=== PATIENT | male | born 1960 | race Caucasian/White ===

== ENCOUNTER 2019-05-06 00:13 | Emergency (ER) | payer MEDICAID, MEDICARE ==
[~2019-05-06] VITALS: Ht 172.7 cm; Wt 64.4 kg
[2019-05-06 01:40] LABS: Basophils # (auto) 0 uL; Basophils % (auto) 0.6 % (0.0-2.0); Eosinophils # (auto) 0.1 uL; Eosinophils % (auto) 0.9 % (0.0-7.0); Hematocrit 44.4 % (41.0-53.0); Hemoglobin 15.5 g/dL (13.5-17.5); Lymphocytes # (auto) 1.3 uL; Mean Corpuscular Hemoglobin 30.7 pg (28.0-32.0); Mean Corpuscular Volume 87.8 fL (80.0-100.0); Monocytes # (auto) 0.7 uL; Monocytes % (auto) 10.5 % (0.0-12.0); Neutrophils # (auto) 4.6 uL; Nucleated Red Blood Cells % 0.1 %; Platelet Count (auto) 109 10^3/uL (140-450); Red Blood Cells 5.06 10^6/uL (4.5-5.90); Red Cell Distribution Width 13.5 % (11.8-14.3); White Blood Cell 6.7 10^3/uL (4.4-10.8)
[2019-05-06 01:58] LABS: Albumin 3.1 g/dL (3.4-5.0); BUN/Creatinine Ratio 26.3; Calcium 9.4 mg/dL (8.5-10.1); Magnesium 1.8 mg/dL (1.6-2.6); Potassium 3.9 mmol/L (3.5-5.1)
[2019-05-06 02:00] LABS: Bilirubin, Total 0.6 mg/dL (0.2-1.0); Total Protein 8.6 g/dL (6.4-8.2)
[2019-05-06 02:55] LABS: Urine Bacteria FEW /hpf (None Seen); Urine Blood TRACE /uL (Negative); Urine Specific Gravity 1.038 (1.001-1.035); Urine WBC 1 /hpf (0 - 3)
[2019-05-06] MEDS ORDERED: SODIUM CHLORIDE 0.9% 1,000 ML IV ONE (07:51)
[2019-05-06] MEDS ORDERED: cloNIDine HCL 0.1 MG TAB PO ONE (08:00)
[2019-05-06] MEDS ORDERED: InsuLIN REG 1unit/0.01ml Soln (100units/ml) IV ONE (08:00)
[2019-05-06 11:00] VITALS: BP 146/91
== END 2019-05-06 12:30 | disposition home or self-care (01) ==
LOC: ER 00:15
DX: E11.65 Type 2 diabetes mellitus with hyperglycemia (principal); I10 Essential (primary) hypertension; R51 Headache
CPT/HCPCS: 36415; 71046; 80053; 81001; 82962; 83735; 85025; 96361; 96374; 99284; J1815; J7030

== ENCOUNTER 2019-11-17 19:05 | Emergency (ER) | payer MEDICARE, MEDICAID ==
[~2019-11-17] VITALS: Ht 172.7 cm; Wt 64.4 kg
[2019-11-17 19:41] VITALS: BP 141/99
[2019-11-17 21:46] LABS: Basophils # (auto) 0.1 10 ^3/uL (0-0.2); Basophils % (auto) 0.8 % (0.0-2.0); Eosinophils # (auto) 0.1 10 ^3/uL (0-0.8); Hematocrit 47.4 % (41.0-53.0); Hemoglobin 16.1 g/dL (13.5-17.5); Lymphocytes # (auto) 2.8 10 ^3/uL (0.4-5.4); Lymphocytes % (auto) 31.5 % (10.0-50.0); Mean Corpuscular Hemoglobin 30.1 pg (28.0-32.0); Mean Corpuscular Hgb Conc. 33.9 g/dL (32.0-36.0); Mean Corpuscular Volume 88.8 fL (80.0-100.0); Monocytes # (auto) 0.8 10 ^3/uL (0-1.3); Monocytes % (auto) 9.4 % (0.0-12.0); Neutrophils # (auto) 5.2 10 ^3/uL (1.6-8.6); Neutrophils % (auto) 57.3 % (37.0-80.0); Nucleated Red Blood Cells % 0.2 %; Platelet Count (auto) 133 10^3/uL (140-450); Red Blood Cells 5.33 10^6/uL (4.5-5.90); Red Cell Distribution Width 13.5 % (11.8-14.3)
[2019-11-17 22:00] LABS: Albumin 3.8 g/dL (3.4-5.0); Calcium 10.3 mg/dL (8.5-10.1); Potassium 4.1 mmol/L (3.5-5.1)
[2019-11-17 22:03] LABS: BUN/Creatinine Ratio 26.3
[2019-11-17 22:06] LABS: Bilirubin, Total 0.7 mg/dL (0.2-1.0); Total Protein 8.6 g/dL (6.4-8.2)
[2019-11-17 22:29] LABS: Urine Bacteria NONE SEEN /hpf (None Seen); Urine Blood 1+ /uL (Negative); Urine Mucus FEW (None Seen); Urine Specific Gravity 1.039 (1.001-1.035); Urine WBC 2 /hpf (0 - 3)
[2019-11-17] MEDS ORDERED: MAGNESIUM CITRATE SOLUTION 300 ML BTL PO ONE (22:45)
== END 2019-11-18 00:20 | disposition home or self-care (01) ==
LOC: ER 19:05
DX: N20.0 Calculus of kidney (principal); K80.20 Calculus of gallbladder without cholecystitis without obstruction; K59.00 Constipation, unspecified; E11.9 Type 2 diabetes mellitus without complications; I10 Essential (primary) hypertension; Z87.442 Personal history of urinary calculi
CPT/HCPCS: 36415; 74176; 80053; 81001; 83690; 85025

== ENCOUNTER 2020-06-20 13:50 | Emergency (ER) | payer MEDICARE, MEDICAID ==
[~2020-06-20] VITALS: Ht 182.9 cm; Wt 65.8 kg
[2020-06-20] MEDS ORDERED: cloNIDine HCL 0.1 MG TAB PO ONE (14:15)
[2020-06-20] MEDS ORDERED: CARISOPRODOL 350 MG TAB PO ONE (17:00)
[2020-06-20] MEDS ORDERED: KETOROLAC TROMETH 60MG/2ML VIAL IM ONE (17:00)
[2020-06-20 18:24] VITALS: BP 160/99
== END 2020-06-20 17:43 | disposition home or self-care (01) ==
LOC: ER 13:50 → EDBD 13:50 → ER 17:43
DX: M54.5 Low back pain (principal); I10 Essential (primary) hypertension
CPT/HCPCS: 72131; 96372; 99284; J1885

== ENCOUNTER 2021-03-28 19:41 | Emergency (ER) | payer MEDICARE, MEDICAID ==
[~2021-03-28] VITALS: Ht 182.9 cm; Wt 77.1 kg
[2021-03-28 19:48] VITALS: BP 219/120
[2021-03-28 21:28] LABS: Basophils # (auto) 0.1 10 ^3/uL (0-0.2); Eosinophils # (auto) 0.1 10 ^3/uL (0-0.8); Eosinophils % (auto) 1.6 % (0.0-7.0); Hemoglobin 13.6 g/dL (13.5-17.5); Lymphocytes # (auto) 1.8 10 ^3/uL (0.4-5.4); Lymphocytes % (auto) 29.6 % (10.0-50.0); Mean Corpuscular Hemoglobin 30.1 pg (28.0-32.0); Mean Corpuscular Volume 88.7 fL (80.0-100.0); Monocytes # (auto) 0.6 10 ^3/uL (0-1.3); Monocytes % (auto) 9.2 % (0.0-12.0); Neutrophils # (auto) 3.6 10 ^3/uL (1.6-8.6); Neutrophils % (auto) 58.6 % (37.0-80.0); Red Blood Cells 4.51 10^6/uL (4.5-5.90); Red Cell Distribution Width 13.3 % (11.8-14.3); White Blood Cell 6.2 10^3/uL (4.4-10.8)
[2021-03-28 21:50] LABS: Albumin 3.7 g/dL (3.4-5.0); Calcium 8.9 mg/dL (8.5-10.1); Potassium 3.5 mmol/L (3.5-5.1)
[2021-03-28 22:09] LABS: BUN/Creatinine Ratio 23.1; Bilirubin, Total 0.4 mg/dL (0.2-1.0); Total Protein 7.3 g/dL (6.4-8.2)
[2021-03-28] MEDS ORDERED: PERCOT PO (23:43)
[2021-03-28] MEDS ORDERED: AZIT1POW12 PO (23:43)
[2021-03-28] MEDS ORDERED: PRED20TA2 PO (23:43)
== END 2021-03-29 05:58 | disposition home or self-care (01) ==
LOC: EDBD 19:41 → ER 19:44
DX: J44.1 Chronic obstructive pulmonary disease with (acute) exacerbation (principal); J18.9 Pneumonia, unspecified organism; E11.9 Type 2 diabetes mellitus without complications; I10 Essential (primary) hypertension
CPT/HCPCS: 36415; 70450; 71045; 72131; 80053; 84484; 85025; 93005

== ENCOUNTER → 2021-05-01 | Emergency (ER) | payer OTHER, MEDICAID ==
[~2021-05-01] VITALS: Ht 180.3 cm; Wt 59.0 kg
[~2021-05-01] MED LIST: AZIT1POW12 PO; PERCOT PO; PRED20TA2 PO
[2021-05-01 22:00] VITALS: BP 167/85
== END | disposition home or self-care (01) ==
LOC: EDBD 13:46 → ER 13:46 → EDUNIT# 13:46
DX: M54.50 Low back pain, unspecified (principal); J44.9 Chronic obstructive pulmonary disease, unspecified; E11.9 Type 2 diabetes mellitus without complications; I10 Essential (primary) hypertension; Z86.73 Personal history of transient ischemic attack (TIA), and cerebral infarction without residual deficits; Z79.2 Long term (current) use of antibiotics; Z79.899 Other long term (current) drug therapy
CPT/HCPCS: 72131

== ENCOUNTER 2024-01-12 08:37 | Inpatient (IN) | payer OTHER ==
[~2024-01-12] VITALS: Ht 175.3 cm; Wt 64.4 kg
[~2024-01-12 08:37] MED LIST changes: +TRAZ-227 PO
[2024-01-12 09:48] LABS: Chloride 104 mmol/L (98-107); Potassium 3.1 mmol/L (3.5-5.1); Sodium 142 mmol/L (136-145)
[2024-01-12 09:49] LABS: Anion Gap 8 (5-15); Calcium 8.9 mg/dL (8.7-10.4); Carbon Dioxide 30 mmol/L (20-31)
[2024-01-12 09:52] LABS: Basophils # (auto) 0 10 ^3/uL (0-0.2); Basophils % (auto) 0.9 % (0.0-2.0); Eosinophils # (auto) 0.1 10 ^3/uL (0-0.8); Eosinophils % (auto) 1.6 % (0.0-7.0); Hematocrit 34.7 % (41.0-53.0); Hemoglobin 12.4 g/dL (13.5-17.5); Lymphocytes # (auto) 1.1 10 ^3/uL (0.4-5.4); Lymphocytes % (auto) 24.2 % (10.0-50.0); Mean Corpuscular Hemoglobin 30.6 pg (28.0-32.0); Mean Corpuscular Hgb Conc. 35.7 g/dL (32.0-36.0); Mean Corpuscular Volume 85.8 fL (80.0-100.0); Monocytes # (auto) 0.4 10 ^3/uL (0-1.3); Monocytes % (auto) 9.4 % (0.0-12.0); Neutrophils # (auto) 2.8 10 ^3/uL (1.6-8.6); Neutrophils % (auto) 63.9 % (37.0-80.0); Platelet Count (auto) 81 10^3/uL (140-450); Red Blood Cells 4.05 10^6/uL (4.5-5.90); Red Cell Distribution Width 14.6 % (11.8-14.3); White Blood Cell 4.4 10^3/uL (4.4-10.8)
[2024-01-12 09:54] LABS: BUN/Creatinine Ratio 12.8 (10.0-20.0); Blood Urea Nitrogen 18 mg/dL (9-23); Glucose 179 mg/dL (74-106)
[2024-01-12] MEDS: methylPREDNISolone SOD SUCC 125 MG/2 ML VL IV ONE ×2 (11:10→19:06)
[2024-01-12 11:13] VITALS: PULSE 92; RESP 18; O2SAT 98
[2024-01-12] MEDS: cloNIDine HCL 0.1 MG TAB PO ONE (11:48)
[2024-01-12] MEDS ORDERED: NITROGLYCERIN 0.4 MG SL TAB SL PRN ×2 (16:00)
[2024-01-12] MEDS ORDERED: ACETAMINOPHEN 325 MG TAB PO PRN (16:00)
[2024-01-12] MEDS ORDERED: ONDANSETRON HCL 4 MG/2 ML VIAL IV PRN (16:00)
[2024-01-12 16:22] LABS: Triglycerides 122 mg/dL (< 150)
[2024-01-12 16:23] LABS: LDL Cholesterol 91 mg/dL (< 100)
[2024-01-12 16:24] LABS: Cholesterol 157 mg/dL (< 200); HDL Cholesterol 46 mg/dL (40-59)
[2024-01-12 16:35] VITALS: BP 190/115; PULSE 92; TEMP 97.9; O2SAT 98
[2024-01-12] MEDS: ALBUTEROL SULF 2.5 MG/0.5ML(0.5%) NEB SOLN NEB ONE (16:43)
[2024-01-12] MEDS: IPRATROPIUM BROM 0.5 MG/2.5ML INH SOL NEB ONE (16:43)
[2024-01-12 16:48] LABS: INR 1.14 (0.9-1.15)
[2024-01-12] MEDS: PANTOPRAZOLE 40 MG/10 ML VIAL INJ IV ONE (19:01)
[2024-01-12] MEDS: ALBUTEROL SULF 2.5 MG/0.5ML(0.5%) NEB SOLN NEB SCH (19:29)
[2024-01-12] MEDS: IPRATROPIUM BROM 0.5 MG/2.5ML INH SOL NEB SCH (19:29)
[2024-01-12 19:53] VITALS: O2SAT 97
[2024-01-12] MEDS: methylPREDNISolone SOD SUCC 125 MG/2 ML VL IV SCH (21:42)
[2024-01-12] MEDS: ATORVASTATIN 20 MG TAB PO SCH (21:43)
[2024-01-12 22:03] VITALS: PULSE 78; RESP 18; O2SAT 98
[2024-01-12] MEDS: LABETALOL HCL 20 MG/4 ML VL IV PRN (22:07)
[2024-01-12 22:10] VITALS: PULSE 78; RESP 18; O2SAT 100
[2024-01-12 23:40] VITALS: BP 168/101; PULSE 77; RESP 18; TEMP 98.2; O2SAT 98
[2024-01-13] VITALS (17 sets, daily range): BP systolic 145–157; BP diastolic 75–89; PULSE 73–84; RESP 14–18; TEMP 97.6–98.3; O2SAT 0–100
[2024-01-13] MEDS ORDERED: FLUT1AER3 IN (02:39)
[2024-01-13] MEDS ORDERED: ATOR10TA52 PO (02:39)
[2024-01-13] MEDS ORDERED: GABA-1250 PO (02:39)
[2024-01-13] MEDS ORDERED: AMLO1TAB22 PO (02:39)
[2024-01-13] MEDS ORDERED: LISI20TA56 PO (02:39)
[2024-01-13] MEDS ORDERED: ATEN100T PO (02:39)
[2024-01-13 06:40] LABS: Basophils # (auto) 0 10 ^3/uL (0-0.2); Basophils % (auto) 0.1 % (0.0-2.0); Eosinophils # (auto) 0 10 ^3/uL (0-0.8); Hematocrit 33.1 % (41.0-53.0); Hemoglobin 11.8 g/dL (13.5-17.5); Lymphocytes # (auto) 0.5 10 ^3/uL (0.4-5.4); Lymphocytes % (auto) 13.5 % (10.0-50.0); Mean Corpuscular Hemoglobin 30.9 pg (28.0-32.0); Mean Corpuscular Hgb Conc. 35.6 g/dL (32.0-36.0); Mean Corpuscular Volume 86.6 fL (80.0-100.0); Monocytes # (auto) 0.1 10 ^3/uL (0-1.3); Monocytes % (auto) 1.5 % (0.0-12.0); Neutrophils # (auto) 3.2 10 ^3/uL (1.6-8.6); Neutrophils % (auto) 84.9 % (37.0-80.0); Platelet Count (auto) 84 10^3/uL (140-450); Red Blood Cells 3.82 10^6/uL (4.5-5.90); Red Cell Distribution Width 14.2 % (11.8-14.3); White Blood Cell 3.8 10^3/uL (4.4-10.8)
[2024-01-13 06:45] LABS: Alanine Aminotransferase 22 U/L (7-40); Albumin 3.8 g/dL (3.2-4.8); Alkaline Phosphatase 84 U/L (46-116); Anion Gap 10 (5-15); Aspartate Aminotransferase 10 U/L (13-40); BUN/Creatinine Ratio 18.2 (10.0-20.0); Bilirubin, Total 0.6 mg/dL (0.2-1.0); Calcium 9.3 mg/dL (8.7-10.4); Carbon Dioxide 26 mmol/L (20-31); Chloride 100 mmol/L (98-107); Potassium 4.2 mmol/L (3.5-5.1); Sodium 136 mmol/L (136-145); Total Protein 6.5 g/dL (5.7-8.2)
[2024-01-13 06:56] LABS: Blood Urea Nitrogen 39 mg/dL (9-23)
[2024-01-13 06:58] LABS: Glucose 437 mg/dL (74-106)
[2024-01-13] MEDS: PANTOPRAZOLE 40 MG/10 ML VIAL INJ IV SCH (11:26)
[2024-01-13] MEDS: ASPirin 81 mg TAB PO SCH (11:27)
[2024-01-13] MEDS: DOCUSATE SOD 100 MG CAP PO SCH (11:27)
[2024-01-14] VITALS (10 sets, daily range): BP systolic 161–196; BP diastolic 99–103; PULSE 84–91; RESP 16–18; TEMP 97.6–98; O2SAT 95–98
[2024-01-14] MEDS ORDERED: DEXTROSE (50%) 50ML SYRG IV PRN (02:45)
[2024-01-14] MEDS: cloNIDine HCL 0.1 MG TAB PO ONE ×2 (04:23→14:59)
[2024-01-14] MEDS: InsuLIN REG 1unit/0.01ml Soln (100units/ml) SC SCH (07:00)
[2024-01-14] MEDS ORDERED: AMLO1TAB23 PO (09:36)
[2024-01-14] MEDS: ACCU-CHEK COMFORT CURVE STRIP VI SCH (11:30)
== END 2024-01-14 15:45 | disposition home or self-care (01) | DRG 304 ==
LOC: EDBD 08:37 → ER 08:37 → EDSEX 08:37 → TELE 15:58 → TELE-WESTW 15:58
PROVIDERS: ADMIT Nurse Practitioner Family; ATTEND Family Medicine
DX: I16.1 Hypertensive emergency (principal); N17.0 Acute kidney failure with tubular necrosis; J44.1 Chronic obstructive pulmonary disease with (acute) exacerbation; J43.9 Emphysema, unspecified; E87.6 Hypokalemia; D69.6 Thrombocytopenia, unspecified; E11.51 Type 2 diabetes mellitus with diabetic peripheral angiopathy without gangrene; E78.00 Pure hypercholesterolemia, unspecified; Z86.73 Personal history of transient ischemic attack (TIA), and cerebral infarction without residual deficits; Z87.442 Personal history of urinary calculi; Z87.891 Personal history of nicotine dependence; Z91.199 Patient's noncompliance with other medical treatment and regimen due to unspecified reason
CPT/HCPCS: 36415; 71045; 80048; 80053; 80061; 82962; 83036; 83735; 83880; 84484; 85025; 85610; 93005; 93306; 93925; 94640; 96374; 96375; 96376; 99291; G0378; J1815; J2470